=== PATIENT | male | born 1960 | race Caucasian/White ===

== ENCOUNTER 2023-09-26 16:25 | Emergency (ER) | payer OTHER ==
[2023-09-26 16:42] VITALS: BP 173/67; PULSE 80; RESP 16; TEMP 98.6; BMI 25.8
== END 2023-09-26 18:15 | disposition home or self-care (01) ==
LOC: JERFT 16:25
DX: S81.811A Laceration without foreign body, right lower leg, initial encounter (principal); S80.812A Abrasion, left lower leg, initial encounter; W20.8XXA Other cause of strike by thrown, projected or falling object, initial encounter; Y99.0 Civilian activity done for income or pay
CPT/HCPCS: 73590-TC-RT-FY; 99283-25